=== PATIENT | male | born 1985 | race African-American/Black ===

== ENCOUNTER 2020-01-06 01:52 | Emergency (ER) | payer SELFPAY ==
[~2020-01-06] VITALS: Ht 182.9 cm; Wt 77.1 kg
--- NOTE | 2020-01-06 02:10 | NUR ---
LAC TRAY SET UP WITH MD AT BEDSIDE. MD APPLIED PRESSURE DRESSING WITH STERIL 4X4S AND COBAN TO L-MIDDLE FINGER. MD TO DUE NERVE BLOCK
[2020-01-06] MEDS ORDERED: LIDOCAINE HCL 2% LOCAL 20 ML VIAL ONE (02:20)
--- NOTE | 2020-01-06 02:39 | NUR ---
MD SUTURED LAC TO PALM OF HAND.
[2020-01-06] MEDS ORDERED: SILVER NITRATE SWABS ONE (02:48)
--- NOTE | 2020-01-06 03:10 | NUR ---
EXPLAINED TO PT AND HIS SISTER OF NEED TO TRANSFER FOR HAND SPECIALIST. PT CHOSE [facility]. BOTH PT AND SISTER REFUSED TO BE TRANSPORTED BY EMS. SISTER STATED THEY WOULD CALL FOR A RIDE TO [facility] THEY COULD NOT AFFORD AMBULANCE. PT WAS ADAMANT THAT HE WAS NOT GOING TO GO BY AMBULANCE.
[2020-01-06] MEDS ORDERED: TETANUS/DIPHTHERIA TOX ADULT 0.5 ML SYR IM STA (03:32)
[2020-01-06] MEDS ORDERED: ACETAMINOPHEN 325 MG TAB ONE (03:39)
[2020-01-06] MEDS ORDERED: TETANUS/DIPHTHERIA TOX ADULT 0.5 ML SYR ONE (03:40)
[2020-01-06] MEDS ORDERED: ACETAMINOPHEN 325 MG TAB PO ONE (03:45)
[2020-01-06 03:56] VITALS: BP 126/89
--- NOTE | 2020-01-06 04:00 | NUR ---
ORIGINAL MOT, FRONT SHEET, DOCTORS T-SHEET, NURSES DC SUMMARY GIVEN TO PT'S SISTER TO GIVE TO [facility]ERSONEL AT [facility].
--- NOTE | 2020-01-07 07:15 | NUR ---
CONTACTED [facility]. VERIFIED PT ARRIVED TO THEIR HOSPITAL AND HAS BEEN DISCHARGED.
== END 2020-01-06 04:00 | disposition short-term general hospital (02) ==
LOC: FSED 01:52
DX: S62.661B Nondisplaced fracture of distal phalanx of left index finger, initial encounter for open fracture (principal); W45.8XXA Other foreign body or object entering through skin, initial encounter; Y93.9 Activity, unspecified; Y92.008 Other place in unspecified non-institutional (private) residence as the place of occurrence of the external cause
CPT/HCPCS: 12001; 13132; 90471; 90714; 96372; 99283; J2001